=== PATIENT | male | born 1990 | race Caucasian/White ===

== ENCOUNTER 2018-05-30 22:03 | Emergency (ER) | payer OTHER | END 2018-05-31 02:07 | disposition home or self-care (01) | LOC: FTE 22:03 | DX: B86 Scabies (principal) | CPT/HCPCS: 99283; Z7502 ==

== ENCOUNTER 2018-10-29 19:26 | Emergency (ER) | payer OTHER | END 2018-10-29 22:50 | disposition home or self-care (01) | LOC: FTE 19:26 | DX: H66.92 Otitis media, unspecified, left ear (principal) | CPT/HCPCS: 99283; Z7502 ==